=== PATIENT | female | born 1950 | race Two or more races ===

== ENCOUNTER 2024-08-10 14:53 | Emergency (ER) | payer OTHER, MEDICAID ==
[~2024-08-10] VITALS: Ht 162.6 cm; Wt 97.2 kg
[2024-08-10 16:21] VITALS: BP 123/60; PULSE 63; RESP 20; TEMP 97.9; O2SAT 96
--- NOTE | 2024-08-10 16:23 | DVH ---
CLINICAL INDICATION: knee pain x 2 weeks TECHNIQUE: 4 views left knee XY L KNEE 4V XRAY Comparison: None FINDINGS/IMPRESSION: : There is no evidence of acute fracture or dislocation. Soft tissues are unremarkable. Moderate degenerative osteoarthritic changes identified. Mild joint effusion
--- NOTE | 2024-08-10 17:02 | DVH ---
Left lower extremity venous duplex Clinical History: R/o dvt Comparison: None Technique: Duplex Doppler evaluation of the deep venous system of the left lower extremity from the common femor al vein to the popliteal vein including color Doppler and spectral/pulsed waveform analysis was perfo rmed. Findings: The common femoral vein demonstrates appropriate compressibility and waveform variability. There is compressibility/patency of the great saphenous vein at the proximal thigh. The femoral vein demonstrates appropriate compressibility and waveform variability. The deep femoral vein demonstrates appropriate compressibility and waveform variability. The popliteal vein demonstrates appropriate compressibility and waveform variability. There is normal compressibility at the tibioperoneal trunk. Impression: 1. No left femoropopliteal venous thrombosis. 2. Contralateral common femoral vein is patent.
--- NOTE | 2024-08-10 17:08 | ED.PDOC ---
Musculoskeletal HPI Comments 73 y/o obese F, with a history of sever arthritis, presents for 2x week history of left knee and lower leg pain, with associated limited range of motion. Pain is described throbbing and constant in quality. Patient endorses on onset of symptoms following Dexamethasone injection a week prior. She denies any recent injuries but admits to receiving stent vascular surgery for 'clogged arteries, recently. She denies any previous injuries, trauma, or travel. Denies any shortness of breath, chest pain, swelling, or further associated symptoms. Chief Complaint: Lower Extremity Time Seen by MD: 16:20 Reviewed Notes: Nurses Notes, Medications, Allergies Allergies: Coded Allergies: NO KNOWN ALLERGIES (Unverified , 08/10/24) Home Meds Active Scripts Diclofenac Sodium (Topical) (Voltaren Arthritis Pain) 1 % Gel, 2 GRAMS EX QIDP for 10 Days, #60 GRAMS 0 Refills Prov:[facility]CIAL OFFIC[facility] 08/10/24 Information Source: Patient Mode of Arrival: Wheelchair Past Medical History PAST MEDICAL HISTORY: Denies Surgical History: Denies all surgeries Family History Family History: Reviewed,noncontributory to illness Social History Smoker: Non-Smoker Alcohol: Denies ETOH Use Drugs: Denies Drug Use All Other Systems: Reviewed and Negative (As per HPI) Physical Exam General Appearance: No Apparent Distress, Normal HEENT: Normal ENT Inspection, Pharynx Normal, TMs Normal Neck: Full Range of Motion, Non-Tender, Normal, Normal Inspection Respiratory: Chest Non-Tender, Lungs Clear, No Accessory Muscle Use, No Respiratory Distress, Normal Breath Sounds Cardiovascular: No Edema, No JVD, No Murmur, No Gallop, Normal Peripheral Pulses, Regular Rate/Rhythm Breast Exam: Deferred Gastrointestinal: No Organomegaly, Non Tender, No Pulsatile Mass, Normal Bowel Sounds, Soft Genitalia: Deferred Pelvic: Deferred Rectal: Deferred Extremities: No calf tenderness, Normal capillary refill, Normal inspection, Normal range of motion, Non-tender, No pedal edema Musculoskeletal : Apperance: Normal 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 Was a procedure done?: No Differential Diagnosis EXT Differential Diagnosis: Fracture, Sprain, Contusion, Strain, Other X-Ray, Labs, Meds, VS Vital Signs Date Time Temp Pulse Resp B/P (MAP) Pulse Ox O2 Delivery O2 Flow Rate FiO2 08/10/24 16:21 63 20 96 Room Air 08/10/24 16:21 97.9 63 20 123/60 (81) 96 97.9 08/10/24 15:16 98.3 65 16 131/86 (101) 97 98.3 [place] [id number] Ph: [phone] DIAGNOSTIC IMAGING Diagnostic Imaging Report : [id number] Signed PATIENT: JUSTINO MCCALL ACCT: [id number] UNIT: [id number] : 1950 LOC: ER ROOM / BED: / AGE / SEX: 73 / F ADM STATUS: REG ER SERVICE [id number] ORDERING PHYSICIAN: [facility] FINANCIAL OFFICER PROCEDURE(s): [id number] - L KNEE 4V XRAY REASON: knee pain x 2 weeks ORDER NUMBER(s): [id number], ACCESSION NUMBER(s): [id number] CLINICAL INDICATION: knee pain x 2 weeks TECHNIQUE: 4 views left knee XY L KNEE 4V XRAY Comparison: None FINDINGS/IMPRESSION: : There is no evidence of acute fracture or dislocation. Soft tissues are unremarkable. Moderate degenerative osteoarthritic changes identified. Mild joint effusion ATED BY: JOSÉ MIGUEL ASIF MD DICTATED DATE/TIME: 08/10/241619 SIGNED BY: JOSÉ MIGUEL ASIF MD SIGNED DATE/TIME: 08/10/241619 CC: X-Ray, Labs, Meds, VS Comment 73 y/o obese F, with a history of sever arthritis, presents for 2x week history of left knee and lower leg pain, with associated limited range of motion. Pain is described throbbing and constant in quality. Today symptoms are consistent with DJD Prescribed Topical NSAIDs for the management of acute knee pain. Recommend light walking under the sun for 30 minutes a day Avoiding running jogging high-impact activities Stretch as tolerated Ice 3x/day for 5 minutes Wear knee brace for stability as needed, elevate leg swelling aggravated Time of 1ST Reevaluation: 16:50 Reevaluation 1ST: Unchanged Patient Education/Counseling: Diagnosis, Treatment Family Education/Counseling: No Family Present Departure 1 Departure Time of Disposition: 17:08 Impression: Primary Impression: Left knee DJD Qualified Codes: M17.12 - Unilateral primary osteoarthritis, left knee Disposition: 01 HOME / SELF CARE / HOMELESS Condition: Fair e-Prescriptions Diclofenac Sodium (Topical) (Voltaren Arthritis Pain) 1 % Gel 2 GRAMS EX QIDP for 10 Days, #60 GRAMS 0 Refills Prov: SERA WOODS NP 08/10/24 Discharged With: Self Critical Care Note Critical Care Time?: No Stability Stability form required: No Heart Score Heart Score: Heart Score Response (Comments) Value History N/A 0 EKG N/A 0 Age N/A 0 Risk Factors N/A 0 Troponin N/A 0 Total 0 I personally scribed for [facility] FINANCIAL OFFICER ([email or web address]) on 08/10/24 at 17:08. Electronically submitted by Vish Altamirano ([email or web address]). SERA WOODS NP Aug 10, 2024 17:08
[2024-08-10] MEDS ORDERED: DICL1GEL59 EX (17:09)
== END 2024-08-10 17:30 | disposition home or self-care (01) ==
LOC: ER 15:03
DX: M17.12 Unilateral primary osteoarthritis, left knee (principal)
CPT/HCPCS: 29530; 73564; 93971